=== PATIENT | female | born 1995 | race Caucasian/White ===

== ENCOUNTER 2017-12-23 03:34 | Emergency (ER) | payer SELFPAY ==
[~2017-12-23] VITALS: Ht 160 cm; Wt 44.0 kg
[2017-12-23 03:45] VITALS: BP 127/84
--- NOTE | 2017-12-23 04:35 | NUR ---
PT TO XRAY VIA W/C.
--- NOTE | 2017-12-23 04:44 | NUR ---
PT BACK FROM XRAY.
== END 2017-12-23 05:38 | disposition home or self-care (01) ==
LOC: ER 03:36
DX: S20.211A Contusion of right front wall of thorax, initial encounter (principal); Z98.890 Other specified postprocedural states; W50.1XXA Accidental kick by another person, initial encounter; Y93.89 Activity, other specified; Y92.89 Other specified places as the place of occurrence of the external cause; Y99.8 Other external cause status
CPT/HCPCS: 71100; 99284; A4606; Z7610